=== PATIENT | female | born 1980 | race Caucasian/White ===

== ENCOUNTER 2021-05-26 14:11 | Emergency (ER) | payer OTHER ==
[~2021-05-26] VITALS: Ht 170.2 cm; Wt 63.9 kg
[2021-05-26 14:20] VITALS: BP 100/53
[2021-05-26] MEDS ORDERED: MORPHINE SULFATE 2 MG/ML INJ. IVP ONE (14:30)
[2021-05-26 14:50] LABS: BASO % 1 % (0-3); EOS # 0.1 x10^3/uL (0.0-0.7); EOS % 2 % (0-3); HEMATOCRIT 32.7 % (36.0-47.0); HEMOGLOBIN 10.9 g/dL (12.0-15.5); LYMPH # 0.9 x10^3/uL (1.0-4.8); LYMPH % 15 % (24-48); MEAN CORPUSCULAR HEMOGLOBIN 29 pg (25-35); MEAN CORPUSCULAR HGB CONC 33 g/dL (31-37); MEAN CORPUSCULAR VOLUME 86 fL (79-100); MONO # 0.2 x10^3/uL (0.0-1.1); MONO % 3 % (0-9); NEUT # 4.4 x10^3/uL (1.8-7.7); NEUT % 79 % (31-73); PLATELET COUNT 274 x10^3/uL (140-400); RED BLOOD COUNT 3.81 x10^6/uL (3.50-5.40); RED CELL DISTRIBUTION WIDTH 12.4 % (11.5-14.5); WHITE BLOOD COUNT 5.5 x10^3/uL (4.0-11.0)
[2021-05-26 14:55] LABS: BILIRUBIN,URINE NEGATIVE (NEG); CLARITY,URINE HAZY; COLOR,URINE STRAW; NITRITE,URINE NEGATIVE (NEG); PH,URINE 8.5 (<5.0-8.0); PROTEIN,URINE NEGATIVE (NEG-TRACE); UROBILINOGEN,URINE 0.2 mg/dL (0.2 mg/dL)
[2021-05-26 14:56] LABS: BACTERIA,URINE FEW /HPF (0-FEW); CALCIUM 8.8 mg/dL (8.5-10.1); CREATININE 0.9 mg/dL (0.6-1.0); POTASSIUM 3.6 mmol/L (3.5-5.1)
[2021-05-26] MEDS ORDERED: ONDANSETRON PF 4 MG/2 ML VIAL. IVP ONE (15:00)
[2021-05-26] MEDS ORDERED: IOHEXOL 300 MG/ML 100ML VIAL. IV ONE (15:00)
[2021-05-26 15:02] LABS: ALBUMIN 3.3 g/dL (3.4-5.0); ALBUMIN/GLOBULIN RATIO 0.8 (1.0-1.7); TOTAL BILIRUBIN 0.4 mg/dL (0.2-1.0); TOTAL PROTEIN 7.5 g/dL (6.4-8.2)
--- NOTE | 2021-05-26 15:13 | PHYS DOC ---
Past Medical History Past Medical History: Ectopic (R side), Ovarian Cyst Additional Past Medical Histor: REYNAUDS SYNDROME,HEART MURMUR,CHRON'S Past Surgical History: Other Additional Past Surgical Histo: HERNIA,LEEP,ECTOPIC,BREAST IMPLANTS,SILICONE GLUTEAL INJECTIONS Smoking Status: Never Smoker Alcohol Use: Rarely General Adult EDM: Chief Complaint: ABDOMINAL PAIN HPI: HPI: Patient is a 41 year old [id number] female who presents with left lower quadrant abdominal pain. Prior to fentanyl administration en route, patient rated her pain 10/10. She now rates it 7/10 and describes it as sharp and intermittent for the past 6 days. Patient reports she was on control for the past year and a half and did not allow a break for menstruation. She reports that she stopped using control, had a period, and that this pain started immediately after. Patient states, "it's my left ovary. [The pain] is right in that area." Patient has history of ectopic on the right side with salpingectomy/oophorectomy. Patient also has had multiple ovarian cysts bilaterally. Patient reports associated nausea and chronic diarrhea secondary to Crohn's disease. Patient denies emesis, bloody stool, dysuria, hematuria, vaginal pain. Review of Systems: Review of Systems: Constitutional: Denies fever, chills or generalized weakness Eyes: Denies change in visual acuity, visual field deficits or discharge HENT: Denies ear pain, nasal congestion or sore throat Respiratory: Denies cough or shortness of breath Cardiovascular: Denies chest pain, palpitations or edema GI: See HPI : See HPI Musculoskeletal: Denies back pain or joint pain Integument: Denies rash or other skin lesion Neurologic: Denies headache, focal weakness or sensory changes Heart Score: C/O Chest Pain: No Current Medications: Current Medications Medications (Trade) Dose Ordered Sig/Lauro Start Time Stop Time Status Last Admin Dose Admin Iohexol (Omnipaque 300 Mg/ml) 75 ml 1X ONCE 05/26/21 15:00 05/26/21 15:01 UNV Morphine Sulfate (Morphine Sulfate) 2 mg 1X ONCE 05/26/21 14:30 05/26/21 14:33 DC 05/26/21 14:51 2 MG Ondansetron HCl (Zofran) 4 mg 1X ONCE 05/26/21 15:00 05/26/21 15:01 DC 05/26/21 14:56 4 MG Allergies: Allergies: Allergies Coded Allergies Type Severity Reaction Last Updated Verified bee venom protein (honey bee) Allergy Unknown 05/26/21 Yes Physical Exam: PE: Constitutional: Well developed, well nourished, no acute distress, patient appears to be in pain. HENT: Normocephalic, atraumatic, bilateral external ears normal, oropharynx moist, nose normal. Eyes: EOMI, conjunctiva normal, no discharge. Neck: Normal range of motion, no stridor. Abdomen: Bowel sounds normal, soft, left lower quadrant tenderness with voluntary guarding, no rebound tenderness, no pulsatile masses. Skin: Warm, dry, no erythema, no rash. Back: No step-off, no tenderness, no CVA tenderness. Extremities: No tenderness, no cyanosis, no clubbing, ROM intact, no edema, no obvious deformities. Neurologic: Alert and oriented x4, steady and symmetrical gait, no focal deficits noted. Current Patient Data: Labs: Laboratory Tests Test 05/26/21 14:33 05/26/21 14:43 White Blood Count 5.5 x10^3/uL (4.0-11.0) Red Blood Count 3.81 x10^6/uL (3.50-5.40) Hemoglobin 10.9 g/dL (12.0-15.5) L Hematocrit 32.7 % (36.0-47.0) L Mean Corpuscular Volume 86 fL (79-100) Mean Corpuscular Hemoglobin 29 pg (25-35) Mean Corpuscular Hemoglobin Concent 33 g/dL (31-37) Red Cell Distribution Width 12.4 % (11.5-14.5) Platelet Count 274 x10^3/uL (140-400) Neutrophils (%) (Auto) 79 % (31-73) H Lymphocytes (%) (Auto) 15 % (24-48) L Monocytes (%) (Auto) 3 % (0-9) Eosinophils (%) (Auto) 2 % (0-3) Basophils (%) (Auto) 1 % (0-3) Neutrophils # (Auto) 4.4 x10^3/uL (1.8-7.7) Lymphocytes # (Auto) 0.9 x10^3/uL (1.0-4.8) L Monocytes # (Auto) 0.2 x10^3/uL (0.0-1.1) Eosinophils # (Auto) 0.1 x10^3/uL (0.0-0.7) Basophils # (Auto) 0.0 x10^3/uL (0.0-0.2) Urine Collection Type Unknown Urine Color Straw Urine Clarity Hazy Urine pH 8.5 (<5.0-8.0) Urine Specific [place] 1.015 (1.000-1.030) Urine Protein Negative mg/dL (NEG-TRACE) Urine Glucose (UA) Negative mg/dL (NEG) Urine Ketones (Stick) Negative mg/dL (NEG) Urine Blood Small (NEG) Urine Nitrite Negative (NEG) Urine Bilirubin Negative (NEG) Urine Urobilinogen Dipstick 0.2 mg/dL (0.2 mg/dL) Urine Leukocyte Esterase Small (NEG) Urine RBC 6-10 /HPF (0-2) Urine WBC 5-10 /HPF (0-4) Urine Squamous Epithelial Cells Few /LPF Urine Bacteria Few /HPF (0-FEW) Sodium Level 141 mmol/L (136-145) Potassium Level 3.6 mmol/L (3.5-5.1) Chloride Level 106 mmol/L (98-107) Carbon Dioxide Level 28 mmol/L (21-32) Anion Gap 7 (6-14) Blood Urea Nitrogen 11 mg/dL (7-20) Creatinine 0.9 mg/dL (0.6-1.0) Estimated GFR (Cockcroft-Gault) 69.0 BUN/Creatinine Ratio 12 (6-20) Glucose Level 93 mg/dL (70-99) Calcium Level 8.8 mg/dL (8.5-10.1) Total Bilirubin 0.4 mg/dL (0.2-1.0) Aspartate Amino Transferase (AST) 11 U/L (15-37) L Alanine Aminotransferase (ALT) 17 U/L (14-59) Alkaline Phosphatase 56 U/L (46-116) Total Protein 7.5 g/dL (6.4-8.2) Albumin 3.3 g/dL (3.4-5.0) L Albumin/Globulin Ratio 0.8 (1.0-1.7) L Lipase 72 U/L (73-393) L POC Urine HCG, Qualitative Hcg negative (Negative) Laboratory Tests 05/26/21 14:33 Laboratory Tests 05/26/21 14:33 Vital Signs: Vital Signs Date Time Temp Pulse Resp B/P (MAP) Pulse Ox O2 Delivery O2 Flow Rate FiO2 05/26/21 14:20 98.1 70 20 100/53 (69) 99 Room Air 98.1 Radiology/Procedures: Radiology/Procedures: PROCEDURE: CT ABD PELV W/ IV CONTRST ONLY PQRS Compliance Statement: One or more of the following individualized dose reduction techniques were u tilized for this examination: 1. Automated exposure control 2. Adjustment of the mA and/or kV according to patient size 3. Use of iterative reconstruction technique CT ABDOMEN+PELVIS W Clinical Indication: Reason: LLQ pain / Spl. Instructions: [id number] 75ML [phone] / History: Comparison: None. Technique: Helical CT imaging of the abdomen and pelvis is performed after 75 cc of Omnipaque 300 IV contrast. Oral contrast not administered. Findings: There is a 3 mm nodule in the left lower lobe, image 5. Lung bases are otherwise clear. Cardiac size is normal. There are bilateral breast implants. The liver, gallbladder, spleen, pancreas, adrenal glands, abdominal aorta, and kidneys are normal. The stomach is unremarkable. There is no dilated small bowel. The appendix is normal. No colon wall thickening is identified. The urinary bladder is normal. The uterus is retroverted. There is mild pelvic free fluid. There is a left adnexal cyst measuring approximately 3.1 cm. There are extensive soft tissue densities and numerous soft tissue nodules in the bilateral gluteal subcutaneous fat. The attenuation of the soft tissue densities measures approximately 45 Hounsfield units. Correlate to whether patient has had free silicone injections. There are nonpathologically enlarged bilateral inguinal lymph nodes. No acute bone abnormality. IMPRESSION: 1. There is mild pelvic free fluid. There is left adnexal cyst. At the time of dictation pelvic ultrasound is pending. Please refer to this report. 2. There is otherwise no acute abdominal or pelvic abnormality. 3. There is a 3 mm noncalcified nodule in the left lower lobe. Consider CT chest follow-up in 12 months if patient has risk factors for lung malignancy, otherwise no follow-up is required per Fleischner Society guidelines. Electronically signed by: Rosendo Rizzo MD (05/26/2021 3:45 PM) [id number] PROCEDURE: PELVIS W/TV INDICATION: Reason: L adnexal pain / Spl. Instructions: / History: COMPARISON: CT from same day TECHNIQUE: Grayscale and color ultrasound images uterus and adnexa. Transabdominal and transvaginal images obtained. Transvaginal images were needed to better visualize structures that were limited on transabdominal imaging. FINDINGS: Uterus: 77 x 55 x 53 mm. 16 mm endometrial stripe Right ovary is not visualized. Left ovary 68 x 36 x 40 mm. A portion of this measurement is likely secondary to complex mass at left ovary. Vascular flow is seen to the left ovary. Prominent bowel in the right adnexa. IMPRESSION: * Abnormal appearance of the left ovary with suspicion of a mixed solid and cystic mass within. Possible causes would include benign etiologies such as hemorrhagic cyst as well as high-grade complex cystic neoplasm and follow-up will be needed to ensure that this does not increase to exclude a neoplastic cause. Additionally would correlate with symptoms and lab markers to ensure that this masslike region is not secondary to a process surrounding the left ovary such as ectopic or pelvic inflammatory disease with tubo-ovarian abscess. Electronically signed by: Glenroy Plaza MD (05/26/2021 4:30 PM) [id number] Course & Med Decision Making: Course & Med Decision Making Pertinent Labs and Imaging studies reviewed. (See chart for details) Patient is a 41-year-old female with past medical history that includes ovarian cysts, prior ectopic , Crohn's disease who presents with left lower quadrant pain. Work-up today will consist of labs, urinalysis, CT abdomen pelvis with IV contrast, pelvic ultrasound. Work-up today reveals a large, complicated left ovarian cyst. This will require further follow-up to determine etiology and treatment by ATTENUATOR specialist. Patient reports that her pain is much improved after medication administration. She is comfortable going home with p.o. pain medication. I stressed the importance of following up with her residential door unit installer regarding further evaluation and treatment, to which she verbalized understanding. Return precautions were provided. Patient understands and is agreeable to discharge plan. Dragon Disclaimer: Dragmarco Disclaimer: This electronic medical record was generated, in whole or in part, using a voice recognition dictation system. Departure Departure Impression: Primary Impression: Mass of left ovary Additional Impression: Left lower quadrant abdominal pain Disposition: HOME / SELF CARE / HOMELESS Condition: STABLE Referrals: HENRY JOSUE MD Patient Instructions: Abdominal Pain, Women, Ovarian Cyst, [id number] Additional Instructions: EMERGENCY DEPARTMENT GENERAL DISCHARGE INSTRUCTIONS Thank you for coming to [facility] Emergency Department (ED) today and trusting us with you care. We trust that you had a positive experience in our Emergency Department. If you wish to speak to the department management, you may call the director at . YOUR FOLLOW UP INSTRUCTIONS ARE FOLLOWS: 1. Follow up with your primary care doctor. If you do not have a primary doctor, please ask for a resource list of physicians or clinics that may be able to assist you with follow up care. 2. The emergency provider has interpreted your imaging studies, if any were ordered. The radiology digital imaging technician also reviewed them. If there is a change in the findings, you will be notified in 48 hours when at all possible. 3. If a lab test or culture has been done, your results will be reviewed and you will be notified if you need a change in treatment. 4. Follow instructions verbalized to you and refer to the printouts if needed. ADDITIONAL INSTRUCTIONS AND INFORMATION: 1. Your care today has been supervised by a physician who is specially trained in emergency care. Many problems require more than one evaluation for a complete diagnosis and treatment. We recommend that you schedule your follow up appointment as recommended to ensure complete treatment of you illness or injury. If you are unable to obtain follow up care and continue to have a problem, or if your condition worsens, we recommend that you return to the ED. 2. We are not able to safely determine your condition over the phone nor are we able to give sound medical advice over the phone. For these safety reasons, if you call for medical advice we will ask you to come to the ED for further evaluation. 3. If you have any questions regarding these discharge instructions please call the ED at . SAFETY INFORMATION: In the interest of safety, wellness, and injury prevention; we encourage you to wear your seat belt, if you smoke; quite smoking, and we encourage family to use a protective helmet for bicycling and other sporting events that present an increased risk for head injury. IF YOUR SYMPTOMS WORSEN OR NEW SYMPTOMS DEVELOP, OR YOU HAVE CONCERNS ABOUT YOUR CONDITION; OR IF YOUR CONDITION WORSENS WHILE YOU ARE WAITING FOR YOUR FOLLOW UP APPOINTMENT; EITHER CONTACT YOUR PRIMARY CARE DOCTOR, THE PHYSICIAN WHOSE NAME AND NUMBER YOU WERE GIVEN, OR RETURN TO THE ED IMMEDIATELY. Scripts Hydrocodone/Acetaminophen (Hydrocodone-Acetamin 5-325 mg) 1 Each Tablet 1 EACH PO Q6HRS, #20 TAB Prov: REMA TEE 05/26/21 REMA TEE May 26, 2021 15:13
[2021-05-26] MEDS ORDERED: CONTRAST GIVEN. MC PRN (15:15)
[2021-05-26] MEDS ORDERED: IV NORMAL SALINE 1000ML BAG 1,000 ML IV ONE (15:30)
--- NOTE | 2021-05-26 15:47 | RAD ---
PQRS Compliance Statement: One or more of the following individualized dose reduction techniques were utilized for this examinat ion: 1. Automated exposure control 2. Adjustment of the mA and/or kV according to patient size 3. Use of iterative reconstruction technique CT ABDOMEN+PELVIS W Clinical Indication: Reason: LLQ pain / Spl. Instructions: [id number] 75ML [phone] / History: Comparison: None. Technique: Helical CT imaging of the abdomen and pelvis is performed after 75 cc of Omnipaque 300 IV contrast. Oral contrast not administered. Findings: There is a 3 mm nodule in the left lower lobe, image 5. Lung bases are otherwise clear. Cardiac size is normal. There are bilateral breast implants. The liver, gallbladder, spleen, pancreas, adrenal glands, abdominal aorta, and kidneys are normal. The stomach is unremarkable. There is no dilated small bowel. The appendix is normal. No colon wall t hickening is identified. The urinary bladder is normal. The uterus is retroverted. There is mild pelvic free fluid. There is a left adnexal cyst measuring approximately 3.1 cm. There are extensive soft tissue densities and numerous soft tissue nodules in the bilateral gluteal s ubcutaneous fat. The attenuation of the soft tissue densities measures approximately 45 Hounsfield un its. Correlate to whether patient has had free silicone injections. There are nonpathologically enlarged bilateral inguinal lymph nodes. No acute bone abnormality. IMPRESSION: 1. There is mild pelvic free fluid. There is left adnexal cyst. At the time of dictation pelvic ultr asound is pending. Please refer to this report. 2. There is otherwise no acute abdominal or pelvic abnormality. 3. There is a 3 mm noncalcified nodule in the left lower lobe. Consider CT chest follow-up in 12 mon ths if patient has risk factors for lung malignancy, otherwise no follow-up is required per Fleischne r Society guidelines. Electronically signed by: Rosendo Rizzo MD (05/26/2021 3:45 PM) [id number]
--- NOTE | 2021-05-26 16:33 | RAD ---
INDICATION: Reason: L adnexal pain / Spl. Instructions: / History: COMPARISON: CT from same day TECHNIQUE: Grayscale and color ultrasound images uterus and adnexa. Transabdominal and transvaginal images obtained. Transvaginal images were needed to better visualize structures that were limited on transabdominal imaging. FINDINGS: Uterus: 77 x 55 x 53 mm. 16 mm endometrial stripe Right ovary is not visualized. Left ovary 68 x 36 x 40 mm. A portion of this measurement is likely secondary to complex mass at left ovary. Vascular flow is seen to the left ovary. Prominent bowel in the right adnexa. IMPRESSION: * Abnormal appearance of the left ovary with suspicion of a mixed solid and cystic mass within. Pos sible causes would include benign etiologies such as hemorrhagic cyst as well as high-grade complex c ystic neoplasm and follow-up will be needed to ensure that this does not increase to exclude a neopla stic cause. Additionally would correlate with symptoms and lab markers to ensure that this masslike r egion is not secondary to a process surrounding the left ovary such as ectopic or pelvic inflammatory disease with tubo-ovarian abscess. Electronically signed by: Glenroy Plaza MD (05/26/2021 4:30 PM) [id number]
[2021-05-26] MEDS ORDERED: HYDR-2759 PO (16:56)
== END 2021-05-26 17:23 | disposition home or self-care (01) ==
LOC: ER 14:11
DX: R10.32 Left lower quadrant pain (principal); N83.8 Other noninflammatory disorders of ovary, fallopian tube and broad ligament; R11.0 Nausea; Z91.030 Bee allergy status
CPT/HCPCS: 36415; 74177; 76830; 76856; 80053; 81001; 81025; 83690; 85025; 87077; 87086; 87186; 87491; 87591; 96361; 96374; 96375; 99285; J2270; J2405; J7030; Q9967